=== PATIENT | male | born 1935 | race Hispanic/Latino ===

== ENCOUNTER → 2023-02-08 | Day surgery (SDC) | payer OTHER ==
[~2023-02-08] MED LIST: FENTANYL CITRATE/PF 100MCG/2 ML INJ ONE; LACTATED RINGER'S 1,000 ML ONE; MIDAZOLAM HCL 2 MG/2 ML VIAL ONE; OR PHACO EYE KIT ONE; PREOP PHACO EYE KIT ONE
[2023-02-08 12:12] VITALS: TEMP 97
[2023-02-08 12:32] VITALS: BP 120/76; PULSE 61; RESP 18; O2SAT 98
== END | disposition home or self-care (01) ==
LOC: OR 08:47
PROVIDERS: ATTEND Ophthalmology
DX: H25.12 Age-related nuclear cataract, left eye (principal); Z85.830 Personal history of malignant neoplasm of bone; Z92.3 Personal history of irradiation
CPT/HCPCS: 66984; J2250; J3010; J7121